=== PATIENT | female | born 1980 | race American Indian/Alaskan Native ===

== ENCOUNTER 2016-10-01 13:20 | Inpatient (IN) | payer MEDICAID, OTHER ==
[2016-10-01 14:01] LABS: Basophils % (Auto) 1.2 % (0.0-1.8); Eosinophils % (Auto) 4.1 % (0.0-4.3); Hematocrit 39.4 % (30.3-42.9); Hemoglobin 12.5 gm/dl (10.1-14.3); Mean Corpuscular HGB Conc 32 % (30-34); Platelet Count 348 K/mm3 (140-440); Red Cell Distribution Width 18.2 % (13.2-15.2); White Blood Count 5.7 K/mm3 (4.5-11.0)
[2016-10-01 14:07] LABS: Mean Corpuscular Hemoglobin 22 pg (28-32); Mean Corpuscular Volume 68 fl (79-97)
[2016-10-01 14:19] LABS: Anion Gap 18 mmol/L; Blood Urea Nitrogen 9 mg/dL (7-17); Carbon Dioxide 25 mmol/L (22-30); Chloride 102.7 mmol/L (98-107); Glucose 92 mg/dL (65-100); Potassium 4.3 mmol/L (3.6-5.0); Sodium 141 mmol/L (137-145)
[2016-10-01 15:51] LABS: Alanine Aminotransferase 10 units/L (7-56); Albumin 3.5 g/dL (3.9-5); Albumin/Globulin Ratio 1.2 %; Alkaline Phosphatase 77 units/L (35-129); INR 1.07 (0.87-1.13); Total Protein 6.4 g/dL (6.3-8.2)
[2016-10-01 15:52] LABS: Partial Thromboplastin Time 28.7 Sec. (24.2-36.6)
[2016-10-01 15:53] LABS: Bilirubin,Direct < 0.2 mg/dL (0-0.2); Bilirubin,Indirect 0.4 mg/dL
[2016-10-01] MEDS ORDERED: LASIX ONE (16:12)
[2016-10-01] MEDS ORDERED: NORMODYNE IV ONE ×3 (16:12→17:05)
--- NOTE | 2016-10-01 16:19 | XRay Report ---
FINAL REPORT PROCEDURE: XR CHEST 1V AP TECHNIQUE: Chest radiograph anteroposterior view. CPT 18800 HISTORY: hypertension COMPARISON: No prior studies are available for comparison. FINDINGS: Heart: Moderately enlarged Mediastinum/Vessels: Moderate to severe congestion. Lungs/Pleural space: Suspect CHF with lower lung zone airspace process and or effusions. Examination limited by underpenetration and motion.. Bony thorax: No acute osseous abnormality. Life support devices: None. IMPRESSION: Suspect moderate to severe CHF with lower lung zone infiltrates and/or effusions. Recommend followup PA lateral chest x-ray nonportable or at least short-term follow-up portable with improved inspiratory effort with improved penetration technique
[2016-10-01] MEDS ORDERED: LASIX IV ONE (16:29)
[2016-10-01] MEDS ORDERED: NITRO-BID 2% TP ONE ×2 (16:53→17:05)
--- NOTE | 2016-10-01 18:08 | History and Physical Report ---
History of Present Illness Date of examination: 10/01/16 Date of admission: 10/01/16 Chief complaint: CC: Sob for few months History of present illness: - History of Present Illness Initial comments: Patient states that she's had somewhat progressive shortness of breath, dyspnea on exertion orthopnea and PND for the past several months. She states that she had a successful one year ago. At that time she was hypertensive. However post she did not follow-up with any physician. She is not taking any medication for hypertension. She states that she just takes turmeric and garlic. She also amazingly states she's had lupus for 20 years but "I did not think it was any big deal". Her medical follow-up as obviously been poor with substitution with herbal treatment. She presents to the emergency department with moderate respiratory distress. Patient does complain of some anterior non-pleuritic chest heaviness. However she is mostly here for evaluation of her dyspnea. She's had no recent fever. She states that she has occasional nonproductive cough. Class III NYHAsymptoms Past Medical Hx - Past Medical History Hx Hypertension: Yes Additional medical history: lupus - Social History Smoking Status: Never Smoker Substance Use Type: None Surg Hx NA Fam Hx Htn Review of Systems ROS: Stated complaint: CHEST PAIN/SOB/RANDAL Other details as noted in HPI Constitutional: denies: chills, fever Eyes: denies: eye pain, eye discharge, vision change ENT: denies: ear pain, throat pain Respiratory: shortness of breath. denies: cough, wheezing Cardiovascular: chest pain. denies: palpitations Endocrine: no symptoms reported Gastrointestinal: denies: abdominal pain, nausea, diarrhea Genitourinary: denies: urgency, dysuria, discharge Musculoskeletal: other (denies leg pain or swelling). denies: back pain, joint swelling, arthralgia Skin: denies: rash, lesions Neurological: denies: headache, weakness, paresthesias Psychiatric: denies: anxiety, depression Hematological/Lymphatic: denies: easy bleeding, easy bruising Medications and Allergies Allergies Allergy/AdvReac Type Severity Reaction Status Date / Time No Known Allergies Allergy Unverified 10/01/16 13:35 Home Medications Medication Instructions Recorded Confirmed Last Taken Type No Known Home Medications [No 10/02/16 10/02/16 Unknown History Reported Home Medications] Exam - Physical Exam Narrative exam: In Mild distress - Constitutional Vitals: Temp Pulse Resp BP Pulse Ox 98 F 107 H 20 174/115 100 10/01/16 13:31 10/01/16 16:26 10/01/16 14:54 10/01/16 16:26 10/01/16 14:54 General appearance: Present: no acute distress, well-nourished - EENT Eyes: Present: PERRL ENT: hearing intact, clear oral mucosa - Neck Neck: Present: supple, normal ROM - Respiratory Respiratory effort: normal Respiratory: bilateral: CTA - Cardiovascular Heart rate: 96 Rhythm: regular Heart Sounds: Present: S1 & S2. Absent: rub, click - Extremities Extremities: pulses intact, pulses symmetrical, No edema Peripheral Pulses: within normal limits - Abdominal General gastrointestinal: Present: soft, non-tender, non-distended, normal bowel sounds Female genitourinary: Present: normal - Rectal Rectal Exam: deferred - Integumentary Integumentary: Present: clear, warm, dry - Musculoskeletal Musculoskeletal: gait normal, strength equal bilaterally - Psychiatric Psychiatric: appropriate mood/affect, intact judgment & insight - Neurologic Neurologic: CNII-XII intact, moves all extremities - Allied Health Allied health notes reviewed: nursing Results - Labs CBC & Chem 7: 10/01/16 13:37 10/02/16 07:21 Labs: Laboratory Last Values WBC 5.7 K/mm3 (4.5-11.0) 10/01/16 13:37 RBC 5.80 M/mm3 (3.65-5.03) H 10/01/16 13:37 Hgb 12.5 gm/dl (10.1-14.3) 10/01/16 13:37 Hct 39.4 % (30.3-42.9) 10/01/16 13:37 MCV 68 fl (79-97) L 10/01/16 13:37 MCH 22 pg (28-32) L 10/01/16 13:37 MCHC 32 % (30-34) 10/01/16 13:37 RDW 18.2 % (13.2-15.2) H 10/01/16 13:37 Plt Count 348 K/mm3 (140-440) 10/01/16 13:37 Lymph % (Auto) 23.1 % (13.4-35.0) 10/01/16 13:37 [place] % (Auto) 7.8 % (0.0-7.3) H 10/01/16 13:37 Eos % (Auto) 4.1 % (0.0-4.3) 10/01/16 13:37 Baso % (Auto) 1.2 % (0.0-1.8) 10/01/16 13:37 Lymph # 1.3 K/mm3 (1.2-5.4) 10/01/16 13:37 [place] # 0.4 K/mm3 (0.0-0.8) 10/01/16 13:37 Eos # 0.2 K/mm3 (0.0-0.4) 10/01/16 13:37 Baso # 0.1 K/mm3 (0.0-0.1) 10/01/16 13:37 Seg Neutrophils % 63.8 % (40.0-70.0) 10/01/16 13:37 Seg Neutrophils # 3.7 K/mm3 (1.8-7.7) 10/01/16 13:37 PT 13.8 Sec. (12.2-14.9) 10/01/16 15:15 INR 1.07 (0.87-1.13) 10/01/16 15:15 APTT 28.7 Sec. (24.2-36.6) 10/01/16 15:15 D-Dimer 867.40 ng/mlDDU (0-234) H 10/01/16 15:15 Sodium 141 mmol/L (137-145) 10/01/16 13:37 Potassium 4.3 mmol/L (3.6-5.0) 10/01/16 13:37 Chloride 102.7 mmol/L (98-107) 10/01/16 13:37 Carbon Dioxide 25 mmol/L (22-30) 10/01/16 13:37 Anion Gap 18 mmol/L 10/01/16 13:37 BUN 9 mg/dL (7-17) 10/01/16 13:37 Creatinine 1.0 mg/dL (0.7-1.2) 10/01/16 13:37 Estimated GFR > 60 ml/min 10/01/16 13:37 BUN/Creatinine Ratio 9.00 % 10/01/16 13:37 Glucose 92 mg/dL (65-100) 10/01/16 13:37 Calcium 9.0 mg/dL (8.4-10.2) 10/01/16 13:37 Magnesium 1.90 mg/dL (1.7-2.3) 10/01/16 15:15 Total Bilirubin 0.60 mg/dL (0.1-1.2) 10/01/16 15:15 Direct Bilirubin < 0.2 mg/dL (0-0.2) 10/01/16 15:15 Indirect Bilirubin 0.4 mg/dL 10/01/16 15:15 AST 12 units/L (5-40) 10/01/16 15:15 ALT 10 units/L (7-56) 10/01/16 15:15 Alkaline Phosphatase 77 units/L (35-129) 10/01/16 15:15 Troponin T < 0.010 ng/mL (0.00-0.029) 10/01/16 16:27 C-Reactive Protein 5.90 mg/dL (0.00-1.30) H 10/01/16 15:15 NT-Pro-B Natriuret Pep 2430 pg/mL (0-450) H 10/01/16 15:15 Total Protein 6.4 g/dL (6.3-8.2) 10/01/16 15:15 Albumin 3.5 g/dL (3.9-5) L 10/01/16 15:15 Albumin/Globulin Ratio 1.2 % 10/01/16 15:15 - Imaging and Cardiology EKG: report reviewed Chest x-ray: report reviewed (CHF on CXR) Assessment and Plan Advance Directives: Yes (Full code) VTE prophylaxis?: Chemical Plan of care discussed with patient/family: Yes - Patient Problems (1) Hypertensive emergency Current Visit: Yes Status: Acute Plan to address problem: Patient has been not taking any hypertensives.She believes in Turmeric and Herbals.Did not follow up with any Physician after her .Started her on Losartan and Coreg.Hydralazine IV 10 mg Prn q3 hrs (2) Acute exacerbation of CHF (congestive heart failure) Current Visit: Yes Status: Acute Qualifiers: Congestive heart failure type: combined Qualified Code(s): I50.43 - Acute on chronic combined systolic (congestive) and diastolic (congestive) heart failure Plan to address problem: New onset CHF.ECHO ordered.Diuretics started.Should improve with controlling HTN.Cardiology consult requested. (3) Lupus Current Visit: Yes Status: Chronic Qualifiers: Lupus erythematosus form: L Systemic lupus erythematosus type: S Systemic lupus erythematosus organ involvement: S Plan to address problem: By HX.Ordered Sed rate PERCY Ds DNA (4) Obesity Current Visit: Yes Status: Chronic Qualifiers: Obesity type: O Obesity classification: O Serious obesity comorbidity presence: S Body mass index: BMI 40.0-44.9 Plan to address problem: Obesity severe.Counselled (5) DVT prophylaxis Current Visit: Yes Status: Acute Plan to address problem: On Lovenox
[2016-10-01] MEDS ORDERED: APRESOLINE ONE (18:17)
[2016-10-01] MEDS ORDERED: APRESOLINE IV ONE (18:18)
[2016-10-01] MEDS ORDERED: ATIVAN ONE (18:56)
[2016-10-01] MEDS ORDERED: ATIVAN PO ONE (18:56)
--- NOTE | 2016-10-01 19:03 | Emergency Department Report ---
ED General Adult HPI - General Chief complaint: Chest Pain Stated complaint: CHEST PAIN/SOB/RANDAL Time Seen by Provider: 10/01/16 14:51 Source: patient Mode of arrival: Ambulatory Limitations: No Limitations - History of Present Illness Initial comments: Patient states that she's had somewhat progressive shortness of breath, dyspnea on exertion orthopnea and PND for the past several months. She states that she had a successful one year ago. At that time she was hypertensive. However after she did not follow-up with any physician. She is not taking any medication for hypertension. She states that she just takes turmeric and garlic. She also amazingly she states she's had lupus for 20 years but "I did not think it was any big deal". Her medical follow-up as obviously been poor with substitution with herbal treatment. She presents to the emergency department with moderate respiratory distress. Patient does complain of some anterior non-pleuritic chest heaviness. However she is mostly here for evaluation of her dyspnea. She's had no recent fever. She states that she has occasional nonproductive cough. -: week(s), month(s) Location: chest Radiation: non-radiation Severity scale (0 -10): 5 Quality: aching Consistency: intermittent Improves with: none Worsens with: none Associated Symptoms: denies other symptoms Treatments Prior to Arrival: other (herbs) - Related Data Allergies Allergy/AdvReac Type Severity Reaction Status Date / Time No Known Allergies Allergy Unverified 10/01/16 13:35 ED Review of Systems ROS: Stated complaint: CHEST PAIN/SOB/RANDAL Other details as noted in HPI Constitutional: denies: chills, fever Eyes: denies: eye pain, eye discharge, vision change ENT: denies: ear pain, throat pain Respiratory: shortness of breath. denies: cough, wheezing Cardiovascular: chest pain. denies: palpitations Endocrine: no symptoms reported Gastrointestinal: denies: abdominal pain, nausea, diarrhea Genitourinary: denies: urgency, dysuria, discharge Musculoskeletal: other (denies leg pain or swelling). denies: back pain, joint swelling, arthralgia Skin: denies: rash, lesions Neurological: denies: headache, weakness, paresthesias Psychiatric: denies: anxiety, depression Hematological/Lymphatic: denies: easy bleeding, easy bruising ED Past Medical Hx - Past Medical History Hx Hypertension: Yes Additional medical history: lupus - Social History Smoking Status: Never Smoker Substance Use Type: None ED Physical Exam - General Limitations: No Limitations General appearance: obese, other (respiratory distress severe hypertension) - Head Head exam: Present: atraumatic, normocephalic - Eye Eye exam: Present: normal appearance. Absent: scleral icterus - ENT ENT exam: Present: mucous membranes moist - Neck Neck exam: Present: normal inspection. Absent: tenderness, meningismus - Respiratory Respiratory exam: Present: respiratory distress, rhonchi - Cardiovascular Cardiovascular Exam: Present: regular rate, normal rhythm. Absent: systolic murmur, diastolic murmur, rubs, gallop - GI/Abdominal GI/Abdominal exam: Present: soft, normal bowel sounds. Absent: distended, tenderness, guarding, rebound, rigid - Extremities Exam Extremities exam: Present: normal inspection - Back Exam Back exam: Present: normal inspection - Neurological Exam Neurological exam: Present: alert, oriented X3, CN II-XII intact. Absent: motor sensory deficit - Psychiatric Psychiatric exam: Present: normal affect, normal mood - Skin Skin exam: Present: warm, dry, intact, normal color. Absent: rash ED Course Vital Signs 10/01/16 10/01/16 10/01/16 13:31 14:54 16:26 Temperature 98 F Pulse Rate 125 H 107 H Respiratory 26 H 20 Rate Blood Pressure 186/135 174/115 O2 Sat by Pulse 97 100 Oximetry - Reevaluation(s) Reevaluation #1: Dr. Reynoso has assumed care of this patient. I have her continue to assist with additional medication for the patient's accelerated hypertension. I spoke to Dr. Reynoso as the patient is having continued anxiety per the nurse. He stated that he was going to come and see the patient. I ordered an arterial blood gas and by mouth Ativan. I spoke with Dr. Reynoso concerning the patient's anticoagulation protocol. He will decide on dose. The patient has diuresed and her blood pressure has improved. 10/01/16 19:03 ED Medical Decision Making - Lab Data Result diagrams: 10/01/16 13:37 10/01/16 13:37 Laboratory Results - last 24 hr 10/01/16 10/01/16 10/01/16 13:37 13:37 15:15 WBC 5.7 RBC 5.80 H Hgb 12.5 Hct 39.4 MCV 68 L MCH 22 L MCHC 32 RDW 18.2 H Plt Count 348 Lymph % (Auto) 23.1 [place] % (Auto) 7.8 H Eos % (Auto) 4.1 Baso % (Auto) 1.2 Lymph # 1.3 [place] # 0.4 Eos # 0.2 Baso # 0.1 Seg Neutrophils % 63.8 Seg Neutrophils # 3.7 PT 13.8 INR 1.07 APTT 28.7 D-Dimer 867.40 H Sodium 141 Potassium 4.3 Chloride 102.7 Carbon Dioxide 25 Anion Gap 18 BUN 9 Creatinine 1.0 Estimated GFR > 60 BUN/Creatinine Ratio 9.00 Glucose 92 Calcium 9.0 Magnesium Total Bilirubin Direct Bilirubin Indirect Bilirubin AST ALT Alkaline Phosphatase Troponin T < 0.010 C-Reactive Protein NT-Pro-B Natriuret Pep Total Protein Albumin Albumin/Globulin Ratio 10/01/16 10/01/16 15:15 16:27 WBC RBC Hgb Hct MCV MCH MCHC RDW Plt Count Lymph % (Auto) [place] % (Auto) Eos % (Auto) Baso % (Auto) Lymph # [place] # Eos # Baso # Seg Neutrophils % Seg Neutrophils # PT INR APTT D-Dimer Sodium Potassium Chloride Carbon Dioxide Anion Gap BUN Creatinine Estimated GFR BUN/Creatinine Ratio Glucose Calcium Magnesium 1.90 Total Bilirubin 0.60 Direct Bilirubin < 0.2 Indirect Bilirubin 0.4 AST 12 ALT 10 Alkaline Phosphatase 77 Troponin T < 0.010 C-Reactive Protein 5.90 H NT-Pro-B Natriuret Pep 2430 H Total Protein 6.4 Albumin 3.5 L Albumin/Globulin Ratio 1.2 - EKG Data -: EKG Interpreted by Me EKG shows normal: sinus rhythm, axis, intervals, QRS complexes, ST-T waves Rate: tachycardia - EKG Data Interpretation: LVH (left atrial enlargement nonspecific changes) - Radiology Data Radiology results: report reviewed interpreted by me: Pulmonary edema on chest x-ray bilateral cardiogenic Critical Care Time: Yes Critical care time in (mins) excluding proc time.: 75 Critical care attestation.: If time is entered above; I have spent that time in minutes in the direct care of this critically ill patient, excluding procedure time. ED Disposition Clinical Impression: Hypertensive emergency Pulmonary edema Qualifiers: Chronicity: acute Qualified Code(s): J81.0 - Acute pulmonary edema Disposition: DC-09 OP ADMIT IP TO THIS HOSP Is pt being admited?: Yes Does the pt Need Aspirin: Yes Condition: Stable Instructions: Hypertension (ED), Pulmonary Edema (ED) Referrals: PRIMARY CARE, [Primary Care Provider] - 3-5 Days Time of Disposition: 19:08
[2016-10-01] MEDS ORDERED: BABY ASPIRIN PO ONE (19:08)
[2016-10-01 19:28] LABS: ISTAT Base Excess -1; ISTAT DEVICE 0; ISTAT HCO3 22.4; ISTAT PCO2 27.5 (35-45); ISTAT PH 7.518 (7.35-7.45); ISTAT PO2 72 (80-105); ISTAT SO2 96; ISTAT TCO2 23
[2016-10-01 20:21] LABS: Bilirubin,Urine NEG (Negative); Blood,Urine NEG (Negative); Ketones,Urine NEG (Negative); Leukocyte Esterase,Urine NEG (Negative); Mucus,Urine FEW /HPF; Nitrite,Urine NEG (Negative); Protein,Urine <15 mg/dL mg/dL (Negative); Urobilinogen,Urine < 2.0 mg/dL (<2.0)
[2016-10-01] MEDS ORDERED: MILK OF MAGNESIA PO PRN (21:10)
[2016-10-01] MEDS ORDERED: PERCOCET 5/325 PO PRN (21:10)
[2016-10-01] MEDS ORDERED: DULCOLAX PR PRN (21:10)
[2016-10-01] MEDS ORDERED: TYLENOL PO PRN (21:10)
[2016-10-01] MEDS ORDERED: AMBIEN PO PRN (21:10)
[2016-10-01] MEDS ORDERED: ZOFRAN IV PRN (21:10)
[2016-10-01] MEDS ORDERED: APRESOLINE IV PRN (21:16)
[2016-10-01] MEDS ORDERED: BABY ASPIRIN ONE (22:01)
[2016-10-01] MEDS: COREG PO SCH (22:31)
[2016-10-01] MEDS: LOVENOX SUB-Q SCH (22:32)
[2016-10-01] MEDS: COZAAR PO SCH (22:32)
[2016-10-01] MEDS: K-DUR PO SCH (22:32)
[2016-10-01] MEDS: DILAUDID IV PRN (23:07)
[2016-10-02] MEDS: LASIX IV SCH ×2 (06:11→19:06)
--- NOTE | 2016-10-02 07:50 | Admit Criteria Form ---
Admission Criteria Documentation: HYPERTENSION Clinical Indications for Admission to Inpatient Care ( [place]/check or initial the applicable condition/criteria) Admission is indicated for 1 or more of the following(1)(2)(3)(4)(5)(6)(7)(8)(9) (10): [X ]I. Hypertensive emergency, with evidence of acute and progressing target organ disease as indicated by 1 or more of the following: [ ]a) Hypertensive encephalopathy (e.g., confusion, altered mental status) (11) [ ]b) Cerebral infarction [ ]c) Intracranial hemorrhage [ ]d) Myocardial ischemia or infarction [X ]e) Heart failure (eg. Pulmonary edema) [ ]f) Aortic dissection [ ]g) Increased creatinine (new) with reduction of more than 50% in estimated glomerular filtration rate from baseline [ ]h) Seizure [ ]i) Papilledema [ ]j) Retinal hemorrhage [ ]k) Microangiopathic hemolytic anemia [ ]l) Other significant finding secondary to hypertension [ ]II. Adrenergic or sympathomimetic crisis (e.g., severe hypertension due to pheochromocytoma crisis, cocaine, phencyclindine, or amphetamine intoxication, or clonidine withdrawal) [ ]III. Severe hypertension (SBP greater than 180 mmHg or DBP greater than 110 mmHg or greater than the 95th percentile for age, gender, and height in pediatric patients) that cannot be controlled (e.g., to SBP less than 160 mmHg and DBP less than 100 mmHg in adults) by treatment with oral medication in emergency department or observation care (12) Extended stay beyond goal length of staymay be needed for(21)(22): [ ]a) Persistent hypertensive encephalopathy [ ]b) Continuation of pulmonary edema [ ]c) Recurring or persistent severe hypertension [ ]d) Target organ damage (eg, angina, stroke, aortic dissection) The original [employer] content created by [employer] has been revised. The portions of the content which have been revised are identified through the use of italic text or in bold, and [employer] has neither reviewed nor approved the modified material. All other unmodified content is copyright [employer]. Please see references footnoted in the original [employer] edition 2016 Admission Criteria Met: Yes
[2016-10-02 07:58] LABS: Alanine Aminotransferase 9 units/L (7-56); Albumin 3.3 g/dL (3.9-5); Alkaline Phosphatase 73 units/L (35-129); Anion Gap 15 mmol/L; BUN/Creatinine Ratio 13.63; Blood Urea Nitrogen 15 mg/dL (7-17); Calcium 8.4 mg/dL (8.4-10.2); Carbon Dioxide 26 mmol/L (22-30); Chloride 102.2 mmol/L (98-107); Glucose 90 mg/dL (65-100); Potassium 3.9 mmol/L (3.6-5.0); Sodium 139 mmol/L (137-145); Total Protein 6.6 g/dL (6.3-8.2)
--- NOTE | 2016-10-02 08:34 | Progress Note ---
Assessment and Plan Assessment and plan: --Hypertensive emergency at the time of admission; On multiple antihypertensives, blood pressure is reasonable level Continue current management, when necessary hydralazine --Acute on chronic hypoxic respiratory failure Multifactorial, secondary to acute on chronic congestive heart failure and fluid overload --Elevated D dimer's in the setting of shortness of breath Evaluate for PE and DVT, CTA chest, lower extremity venous Doppler --Acute on chronic systolic congestive heart failure/EF 30-35% Continue anti-failure medication, input output monitoring, cardiologyevaluation Echocardiogram EF 30-35%. Low sodium diet and fluid restriction --History of lupus; stable --DVT prophylaxis; with Lovenox --Obesity with BMI of 38; counseling done patient strongly advised dietary modification and exercise as tolerated and weight reduction but medically stable --DC planning per case management, possible home health at discharge Plan of care discussed with the patient for nurse and case management Disposition; optimize the medication, home health at discharge, possible discharge in one to 2 days if stable History Interval history: Patient seen and evaluated medical records reviewed No new events reported by the nursing staff Patient has mild shortness of breath denies chest pain Alert awake oriented 3 not in acute distress, vital signs reviewed Hospitalist Physical - Constitutional Vitals: Temp Pulse Resp BP Pulse Ox 98 F 91 H 21 136/83 97 10/01/16 13:31 10/02/16 08:05 10/02/16 08:05 10/02/16 04:00 10/02/16 08:05 General appearance: Present: no acute distress, well-nourished - EENT Eyes: Present: PERRL, EOM intact - Neck Neck: Present: supple, normal ROM - Respiratory Respiratory effort: normal Respiratory: bilateral: diminished, negative: rales, rhonchi, wheezing - Cardiovascular Rhythm: regular Heart Sounds: Present: S1 & S2 - Extremities Extremities: no ischemia Extremity abnormal: edema - Abdominal General gastrointestinal: soft, non-tender, non-distended, normal bowel sounds, other (obese) - Integumentary Integumentary: Present: clear, warm - Psychiatric Psychiatric: appropriate mood/affect, cooperative - Neurologic Neurologic: CNII-XII intact, moves all extremities Results - Labs CBC & Chem 7: 10/01/16 13:37 10/02/16 07:21 Labs: Laboratory Last Values WBC 5.7 K/mm3 (4.5-11.0) 10/01/16 13:37 RBC 5.80 M/mm3 (3.65-5.03) H 10/01/16 13:37 Hgb 12.5 gm/dl (10.1-14.3) 10/01/16 13:37 Hct 39.4 % (30.3-42.9) 10/01/16 13:37 MCV 68 fl (79-97) L 10/01/16 13:37 MCH 22 pg (28-32) L 10/01/16 13:37 MCHC 32 % (30-34) 10/01/16 13:37 RDW 18.2 % (13.2-15.2) H 10/01/16 13:37 Plt Count 348 K/mm3 (140-440) 10/01/16 13:37 Lymph % (Auto) 23.1 % (13.4-35.0) 10/01/16 13:37 [place] % (Auto) 7.8 % (0.0-7.3) H 10/01/16 13:37 Eos % (Auto) 4.1 % (0.0-4.3) 10/01/16 13:37 Baso % (Auto) 1.2 % (0.0-1.8) 10/01/16 13:37 Lymph # 1.3 K/mm3 (1.2-5.4) 10/01/16 13:37 [place] # 0.4 K/mm3 (0.0-0.8) 10/01/16 13:37 Eos # 0.2 K/mm3 (0.0-0.4) 10/01/16 13:37 Baso # 0.1 K/mm3 (0.0-0.1) 10/01/16 13:37 Seg Neutrophils % 63.8 % (40.0-70.0) 10/01/16 13:37 Seg Neutrophils # 3.7 K/mm3 (1.8-7.7) 10/01/16 13:37 PT 13.8 Sec. (12.2-14.9) 10/01/16 15:15 INR 1.07 (0.87-1.13) 10/01/16 15:15 APTT 28.7 Sec. (24.2-36.6) 10/01/16 15:15 D-Dimer 867.40 ng/mlDDU (0-234) H 10/01/16 15:15 POC ABG pH 7.518 (7.35-7.45) H 10/01/16 19:12 POC ABG pCO2 27.5 (35-45) L 10/01/16 19:12 POC ABG pO2 72 (80-105) L 10/01/16 19:12 POC ABG HCO3 22.4 10/01/16 19:12 POC ABG Total CO2 23 10/01/16 19:12 POC ABG O2 Sat 96 10/01/16 19:12 POC ABG Base Excess -1 10/01/16 19:12 FiO2 21 % 10/01/16 19:12 Sodium 139 mmol/L (137-145) 10/02/16 07:21 Potassium 3.9 mmol/L (3.6-5.0) 10/02/16 07:21 Chloride 102.2 mmol/L (98-107) 10/02/16 07:21 Carbon Dioxide 26 mmol/L (22-30) 10/02/16 07:21 Anion Gap 15 mmol/L 10/02/16 07:21 BUN 15 mg/dL (7-17) 10/02/16 07:21 Creatinine 1.1 mg/dL (0.7-1.2) 10/02/16 07:21 Estimated GFR > 60 ml/min 10/02/16 07:21 BUN/Creatinine Ratio 13.63 % 10/02/16 07:21 Glucose 90 mg/dL (65-100) 10/02/16 07:21 Hemoglobin A1c 5.0 % (4-6) 10/02/16 07:21 Calcium 8.4 mg/dL (8.4-10.2) 10/02/16 07:21 Magnesium 1.90 mg/dL (1.7-2.3) 10/01/16 15:15 Total Bilirubin 0.40 mg/dL (0.1-1.2) 10/02/16 07:21 Direct Bilirubin < 0.2 mg/dL (0-0.2) 10/01/16 15:15 Indirect Bilirubin 0.4 mg/dL 10/01/16 15:15 AST 16 units/L (5-40) 10/02/16 07:21 ALT 9 units/L (7-56) 10/02/16 07:21 Alkaline Phosphatase 73 units/L (35-129) 10/02/16 07:21 Troponin T < 0.010 ng/mL (0.00-0.029) 10/01/16 20:48 C-Reactive Protein 5.90 mg/dL (0.00-1.30) H 10/01/16 15:15 NT-Pro-B Natriuret Pep 2430 pg/mL (0-450) H 10/01/16 15:15 Total Protein 6.6 g/dL (6.3-8.2) 10/02/16 07:21 Albumin 3.3 g/dL (3.9-5) L 10/02/16 07:21 Albumin/Globulin Ratio 1.0 % 10/02/16 07:21 Urine Color Straw (Yellow) 10/01/16 17:08 Urine Turbidity Clear (Clear) 10/01/16 17:08 Urine pH 7.0 (5.0-7.0) 10/01/16 17:08 Ur Specific [place] 1.006 (1.003-1.030) 10/01/16 17:08 Urine Protein <15 mg/dl mg/dL (Negative) 10/01/16 17:08 Urine Glucose (UA) Neg mg/dL (Negative) 10/01/16 17:08 Urine Ketones Neg mg/dL (Negative) 10/01/16 17:08 Urine Blood Neg (Negative) 10/01/16 17:08 Urine Nitrite Neg (Negative) 10/01/16 17:08 Urine Bilirubin Neg (Negative) 10/01/16 17:08 Urine Urobilinogen < 2.0 mg/dL (<2.0) 10/01/16 17:08 Ur Leukocyte Esterase Neg (Negative) 10/01/16 17:08 Urine WBC (Auto) 1.0 /HPF (0.0-6.0) 10/01/16 17:08 Urine RBC (Auto) 1.0 /HPF (0.0-6.0) 10/01/16 17:08 U Epithel Cells (Auto) < 1.0 /HPF (0-13.0) 10/01/16 17:08 Urine Mucus Few /HPF 10/01/16 17:08 Urine HCG, Qual Negative (Negative) 10/01/16 17:08
--- NOTE | 2016-10-02 10:49 | Cat Scan Report ---
CTA CHEST: History: Shortness of breath. Technique: Helical CT following IV contrast. Pulmonary embolus protocol. Sagittal and coronal reformatted images. Rotational MIP images. Findings: Contrast bolus is satisfactory. No pulmonary embolus is identified. Mild cardiomegaly is suspected. Trace right pleural effusion is identified mild bibasilar atelectasis is identified. No evidence for pneumonia or pneumothorax. The mediastinal structures are within normal limits. No evidence for mediastinal mass or adenopathy. Impression: No pulmonary embolus is identified. Mild cardiomegaly and small right pleural effusion. Bibasilar atelectasis.
--- NOTE | 2016-10-02 13:48 | Consultation ---
History of Present Illness Consult date: 10/02/16 Consult reason: congestive heart failure History of present illness: This is a 36yr old female who presented with progressive shortness of breath. She reports a history of Hypertension diagnosed a year ago during her . Since giving , she stopped taking her medications and has not followed up with any physician. While in the ED, she had a systolic blood pressure as high as 206 but has improved since initial treatment. Chest x-ray reports CHF. A 12 lead ECG shows a sinus rhythm with LVH and nonspecific Twave abnormalities. Cardiac consultation was requested for CHF evaluation. Medications and Allergies Allergies Allergy/AdvReac Type Severity Reaction Status Date / Time No Known Allergies Allergy Unverified 10/01/16 13:35 Home Medications Medication Instructions Recorded Confirmed Last Taken Type No Known Home Medications [No 10/02/16 10/02/16 Unknown History Reported Home Medications] Active Meds: Active Medications Acetaminophen (Tylenol) 650 mg PO Q4H PRN PRN Reason: Pain MILD(1-3)/Fever >100.5/MENDES Last Admin: 10/01/16 22:33 Dose: 650 mg Bisacodyl (Dulcolax) 10 mg ND QDAY PRN PRN Reason: Constipation unrelieved by MOM Carvedilol (Coreg) 12.5 mg PO BID [facility] Last Admin: 10/01/16 22:31 Dose: 12.5 mg Enoxaparin Sodium (Lovenox) 40 mg SUB-Q QDAY [facility] Last Admin: 10/01/16 22:32 Dose: 40 mg Furosemide (Lasix) 40 mg IV 0600,1800 [facility] Last Admin: 10/02/16 06:11 Dose: 40 mg Hydralazine HCl (Apresoline) 10 mg IV Q3H PRN PRN Reason: Hypertension Last Admin: 10/01/16 23:06 Dose: 10 mg Hydromorphone HCl (Dilaudid) 0.5 mg IV Q3H PRN PRN Reason: Pain , Severe (7-10) Last Admin: 10/01/16 23:07 Dose: 0.5 mg Losartan Potassium (Cozaar) 100 mg PO QDAY [facility] Last Admin: 10/01/16 22:32 Dose: 100 mg Magnesium Hydroxide (Milk Of Magnesia) 30 ml PO Q4H PRN PRN Reason: Constipation Last Admin: 10/01/16 22:33 Dose: 30 ml Ondansetron HCl (Zofran) 4 mg IV Q8H PRN PRN Reason: N/V unrelieved by Reglan Last Admin: 10/01/16 22:36 Dose: 4 mg Oxycodone/Acetaminophen (Percocet 5/325) 1 tab PO Q6H PRN PRN Reason: Pain, Moderate (4-6) Potassium Chloride (K-Dur) 20 meq PO Q12H [facility] Last Admin: 10/01/16 22:32 Dose: 20 meq Zolpidem Tartrate (Ambien) 5 mg PO QHS PRN PRN Reason: Insomnia Physical Examination Vital Signs Temp Pulse Resp BP Pulse Ox 98 F 125 H 26 H 186/135 97 10/01/16 13:31 10/01/16 13:31 10/01/16 13:31 10/01/16 13:31 10/01/16 13:31 General appearance: no acute distress HEENT: Positive: PERRL Neck: Positive: trachea midline Cardiac: Positive: Reg Rate and Rhythm Neuro: Positive: Grossly Intact Results 10/01/16 13:37 10/02/16 07:21 Cardiac Enzymes 10/02/16 Range/Units 07:21 AST 16 (5-40) units/L Comprehensive Metabolic Panel 10/02/16 Range/Units 07:21 Sodium 139 (137-145) mmol/L Potassium 3.9 (3.6-5.0) mmol/L Chloride 102.2 (98-107) mmol/L Carbon Dioxide 26 (22-30) mmol/L BUN 15 (7-17) mg/dL Creatinine 1.1 (0.7-1.2) mg/dL Glucose 90 (65-100) mg/dL Calcium 8.4 (8.4-10.2) mg/dL AST 16 (5-40) units/L ALT 9 (7-56) units/L Alkaline Phosphatase 73 (35-129) units/L Total Protein 6.6 (6.3-8.2) g/dL Albumin 3.3 L (3.9-5) g/dL Assessment and Plan CHF, undetermined echo results pending no evidence of PE on CTA Hypertension Obesity
[2016-10-02] MEDS: COZAAR PO SCH (13:49)
[2016-10-02] MEDS: K-DUR PO SCH ×2 (13:50→22:00)
[2016-10-02] MEDS: COREG PO SCH ×2 (13:50→22:00)
[2016-10-02] MEDS: LOVENOX SUB-Q SCH (13:53)
[2016-10-03] MEDS: LASIX IV SCH ×2 (05:47→19:05)
--- NOTE | 2016-10-03 10:40 | Progress Note ---
Assessment and Plan CHF, systolic EF 30-35% on echocardiogram no evidence of PE on CTA Hypertension Obesity Plan: Medical therapy for systolic heart failure. A predischarge thallium stress test for further cardiac evaluation. Subjective Date of service: 10/03/16 Interval history: Patient reports her breathing is better. Objective Vital Signs Temp Pulse Pulse Resp Resp BP Pulse Ox 10/03/16 10:00 96 10/03/16 09:09 97.5 F L 89 18 124/94 97 10/03/16 04:41 98.2 F 84 18 118/54 96 10/03/16 00:02 97.6 F 74 20 110/64 98 10/02/16 22:00 90 95 H 18 128/60 98 10/02/16 21:12 18 10/02/16 19:51 98 F 90 20 128/60 98 10/02/16 19:02 90 10/02/16 17:55 98.0 F 89 18 117/72 97 10/02/16 13:49 81 139/85 10/02/16 12:59 97 - Physical Examination General: No Apparent Distress HEENT: Positive: PERRL Neck: Positive: trachea midline Cardiac: Positive: Reg Rate and Rhythm Lungs: Positive: Decreased Breath Sounds Neuro: Positive: Grossly Intact - Imaging and Cardiology EKG: report reviewed
[2016-10-03] MEDS: LOVENOX SUB-Q SCH (11:00)
[2016-10-03] MEDS: DILAUDID IV PRN (11:00)
[2016-10-03] MEDS: COZAAR PO SCH (11:01)
--- NOTE | 2016-10-03 16:00 | Vascular Lab Report ---
LOWER EXTREMITY VENOUS DUPLEX: REASON FOR EXAM: Swelling of the lower extremities. COMMENTS ON THE RIGHT: All veins visualized are freely compressible without evidence of internal echogenicity. Flow is spontaneous and phasic throughout. COMMENTS ON THE LEFT: All veins visualized are freely compressible without evidence of internal echogenicity. Flow is spontaneous and phasic throughout. IMPRESSION: No evidence of acute or chronic deep venous thrombosis in either lower extremity.
--- NOTE | 2016-10-03 16:19 | Progress Note ---
Assessment and Plan Assessment and plan: --Hypertensive emergency at the time of admission; On multiple antihypertensives, blood pressure is reasonable level Continue current management, when necessary hydralazine --Acute on chronic hypoxic respiratory failure Multifactorial, secondary to acute on chronic congestive heart failure and fluid overload --Elevated D dimer's in the setting of shortness of breath Evaluate for PE and DVT, CTA chest, lower extremity venous Doppler --Acute on chronic systolic congestive heart failure/EF 30-35% Continue anti-failure medication, input output monitoring, cardiologyevaluation Echocardiogram EF 30-35%. Low sodium diet and fluid restriction --History of lupus; stable --DVT prophylaxis; with Lovenox --Obesity with BMI of 38; counseling done patient strongly advised dietary modification and exercise as tolerated and weight reduction but medically stable --DC planning per case management, possible home health at discharge Plan of care discussed with the patient for nurse and case management Disposition: continue inpatient care, stress test tomorrow, d/w Cardiology, optimize the medication, home health at discharge, possible discharge tomorrow History Interval history: Patient seen and examined. Follow up on current diagnosis/sob, improved. Overnight uneventful. No cp, n/v or severe headaches. Imaging, old records, testing, labs, nursing notes reviewed. Hospitalist Physical - Physical exam Narrative exam: GEN: WDWN, NAD, AWAKE, ALERT, ORIENTATED x 3 HEENT: NCAT, PERRL, EOMI, OP CLEAR NECK: SUPPLE, NO THYROMEGALY, NO JVD, NO LAD CVS: RRR, NORMAL S1S2 LUNGS/CHEST: CTA B, NORMAL CHEST EXPANSION B, GOOD AIR ENTRY B ABD: SOFT, NTND, GBS, NO REBOUND OR GUARDING EXT/SKIN: NO SIGNIFICANT EDEMA OR RASH MSK: FROM X 4 EXTREMITIES NEURO: CN 2-12 GROSSLY INTACT, NO FOCAL DEFICITS PSY: CALM - Constitutional Vitals: Temp Pulse Resp BP Pulse Ox 98.1 F 75 18 119/60 100 10/03/16 13:42 10/03/16 13:42 10/03/16 13:42 10/03/16 13:42 10/03/16 13:42 General appearance: Present: no acute distress, well-nourished Results - Labs CBC & Chem 7: 10/01/16 13:37 10/02/16 07:21 Labs: Laboratory Last Values WBC 5.7 K/mm3 (4.5-11.0) 10/01/16 13:37 RBC 5.80 M/mm3 (3.65-5.03) H 10/01/16 13:37 Hgb 12.5 gm/dl (10.1-14.3) 10/01/16 13:37 Hct 39.4 % (30.3-42.9) 10/01/16 13:37 MCV 68 fl (79-97) L 10/01/16 13:37 MCH 22 pg (28-32) L 10/01/16 13:37 MCHC 32 % (30-34) 10/01/16 13:37 RDW 18.2 % (13.2-15.2) H 10/01/16 13:37 Plt Count 348 K/mm3 (140-440) 10/01/16 13:37 Lymph % (Auto) 23.1 % (13.4-35.0) 10/01/16 13:37 [place] % (Auto) 7.8 % (0.0-7.3) H 10/01/16 13:37 Eos % (Auto) 4.1 % (0.0-4.3) 10/01/16 13:37 Baso % (Auto) 1.2 % (0.0-1.8) 10/01/16 13:37 Lymph # 1.3 K/mm3 (1.2-5.4) 10/01/16 13:37 [place] # 0.4 K/mm3 (0.0-0.8) 10/01/16 13:37 Eos # 0.2 K/mm3 (0.0-0.4) 10/01/16 13:37 Baso # 0.1 K/mm3 (0.0-0.1) 10/01/16 13:37 Seg Neutrophils % 63.8 % (40.0-70.0) 10/01/16 13:37 Seg Neutrophils # 3.7 K/mm3 (1.8-7.7) 10/01/16 13:37 ESR 36 mm/Hr (0-20) 10/02/16 09:27 PT 13.8 Sec. (12.2-14.9) 10/01/16 15:15 INR 1.07 (0.87-1.13) 10/01/16 15:15 APTT 28.7 Sec. (24.2-36.6) 10/01/16 15:15 D-Dimer 867.40 ng/mlDDU (0-234) H 10/01/16 15:15 POC ABG pH 7.518 (7.35-7.45) H 10/01/16 19:12 POC ABG pCO2 27.5 (35-45) L 10/01/16 19:12 POC ABG pO2 72 (80-105) L 10/01/16 19:12 POC ABG HCO3 22.4 10/01/16 19:12 POC ABG Total CO2 23 10/01/16 19:12 POC ABG O2 Sat 96 10/01/16 19:12 POC ABG Base Excess -1 10/01/16 19:12 FiO2 21 % 10/01/16 19:12 Sodium 139 mmol/L (137-145) 10/02/16 07:21 Potassium 3.9 mmol/L (3.6-5.0) 10/02/16 07:21 Chloride 102.2 mmol/L (98-107) 10/02/16 07:21 Carbon Dioxide 26 mmol/L (22-30) 10/02/16 07:21 Anion Gap 15 mmol/L 10/02/16 07:21 BUN 15 mg/dL (7-17) 10/02/16 07:21 Creatinine 1.1 mg/dL (0.7-1.2) 10/02/16 07:21 Estimated GFR > 60 ml/min 10/02/16 07:21 BUN/Creatinine Ratio 13.63 % 10/02/16 07:21 Glucose 90 mg/dL (65-100) 10/02/16 07:21 Hemoglobin A1c 5.0 % (4-6) 10/02/16 07:21 Calcium 8.4 mg/dL (8.4-10.2) 10/02/16 07:21 Magnesium 1.90 mg/dL (1.7-2.3) 10/01/16 15:15 Total Bilirubin 0.40 mg/dL (0.1-1.2) 10/02/16 07:21 Direct Bilirubin < 0.2 mg/dL (0-0.2) 10/01/16 15:15 Indirect Bilirubin 0.4 mg/dL 10/01/16 15:15 AST 16 units/L (5-40) 10/02/16 07:21 ALT 9 units/L (7-56) 10/02/16 07:21 Alkaline Phosphatase 73 units/L (35-129) 10/02/16 07:21 Troponin T < 0.010 ng/mL (0.00-0.029) 10/01/16 20:48 C-Reactive Protein 5.90 mg/dL (0.00-1.30) H 10/01/16 15:15 NT-Pro-B Natriuret Pep 2430 pg/mL (0-450) H 10/01/16 15:15 Total Protein 6.6 g/dL (6.3-8.2) 10/02/16 07:21 Albumin 3.3 g/dL (3.9-5) L 10/02/16 07:21 Albumin/Globulin Ratio 1.0 % 10/02/16 07:21 Urine Color Straw (Yellow) 10/01/16 17:08 Urine Turbidity Clear (Clear) 10/01/16 17:08 Urine pH 7.0 (5.0-7.0) 10/01/16 17:08 Ur Specific [place] 1.006 (1.003-1.030) 10/01/16 17:08 Urine Protein <15 mg/dl mg/dL (Negative) 10/01/16 17:08 Urine Glucose (UA) Neg mg/dL (Negative) 10/01/16 17:08 Urine Ketones Neg mg/dL (Negative) 10/01/16 17:08 Urine Blood Neg (Negative) 10/01/16 17:08 Urine Nitrite Neg (Negative) 10/01/16 17:08 Urine Bilirubin Neg (Negative) 10/01/16 17:08 Urine Urobilinogen < 2.0 mg/dL (<2.0) 10/01/16 17:08 Ur Leukocyte Esterase Neg (Negative) 10/01/16 17:08 Urine WBC (Auto) 1.0 /HPF (0.0-6.0) 10/01/16 17:08 Urine RBC (Auto) 1.0 /HPF (0.0-6.0) 10/01/16 17:08 U Epithel Cells (Auto) < 1.0 /HPF (0-13.0) 10/01/16 17:08 Urine Mucus Few /HPF 10/01/16 17:08 Urine HCG, Qual Negative (Negative) 10/01/16 17:08
[2016-10-03] MEDS: K-DUR PO SCH ×2 (19:03→21:11)
[2016-10-03] MEDS: COREG PO SCH (19:04)
[2016-10-04] MEDS: COREG PO SCH ×2 (00:41→10:22)
[2016-10-04] MEDS: DILAUDID IV PRN ×3 (04:06→14:20)
[2016-10-04] MEDS: LASIX IV SCH ×3 (05:11→18:15)
[2016-10-04] MEDS ORDERED: LEXISCAN IV ONE ×2 (08:44→08:46)
--- NOTE | 2016-10-04 10:18 | Progress Note ---
Assessment and Plan Assessment and plan: Patient is a 36-year-old woman with history of lupus, hypertension and morbid obesity BMI 51.2 presented to [facility] emergency department with shortness of breath and chest pains. Patient has been using herbals to control her blood pressure and lupus. Her blood pressure on triage was 186/135, heart rate 125 respiration, 26, proBNP 2430, chest x-ray read as moderate to severe CHF with lower alone infiltrates and/or effusion recommend follow-up PA chest x-ray. Elevated d-dimer; therefore, she underwent CTA of the chest which was read as no PE, mild cardiomegaly, small right pleural effusion and bibasilar atelectasis. Transthoracic echocardiogram read as global left ventricular systolic function is moderately to severely decreased, estimated ejection fraction is 30-35%, moderate concentric left ventricular Artery, left atrium is mildly dilated, moderate mitral regurgitation. -Hypertensive emergency at the time of admission; On multiple antihypertensives, blood pressure is reasonable level Continue current management, when necessary hydralazine -Acute on chronic hypoxic respiratory failure Multifactorial, secondary to acute on chronic congestive heart failure and fluid overload -Elevated D dimer's in the setting of shortness of breath Evaluate for PE and DVT, CTA chest, lower extremity venous Doppler -Acute on chronic systolic congestive heart failure/EF 30-35% Continue anti-failure medication, input output monitoring, cardiology following Echocardiogram EF 30-35%. Low sodium diet and fluid restriction -History of lupus; stable -DVT prophylaxis; with Lovenox -DC planning per case management, possible home health at discharge Plan of care discussed with the patient for nurse and case management Disposition: continue inpatient care, stress test today, if negative possible d/ c if ok with Cardiology History Interval history: Patient seen and examined. Follow up on current diagnosis/sob, improved. Overnight uneventful. No cp, n/v or severe headaches. Imaging, old records, testing, labs, nursing notes reviewed. Hospitalist Physical - Physical exam Narrative exam: GEN: WDWN, NAD, AWAKE, ALERT, ORIENTATED x 3 HEENT: NCAT, PERRL, EOMI, OP CLEAR NECK: SUPPLE, NO THYROMEGALY, NO JVD, NO LAD CVS: RRR, NORMAL S1S2 LUNGS/CHEST: CTA B, NORMAL CHEST EXPANSION B, GOOD AIR ENTRY B ABD: SOFT, NTND, GBS, NO REBOUND OR GUARDING EXT/SKIN: NO SIGNIFICANT EDEMA OR RASH MSK: FROM X 4 EXTREMITIES NEURO: CN 2-12 GROSSLY INTACT, NO FOCAL DEFICITS PSY: CALM - Constitutional Vitals: Temp Pulse Resp BP Pulse Ox 97.9 F 66 18 160/78 98 10/04/16 04:55 10/04/16 04:55 10/04/16 04:55 10/04/16 04:55 10/04/16 04:55 General appearance: Present: no acute distress, well-nourished Results - Labs CBC & Chem 7: 10/01/16 13:37 10/02/16 07:21 Labs: Laboratory Last Values WBC 5.7 K/mm3 (4.5-11.0) 10/01/16 13:37 RBC 5.80 M/mm3 (3.65-5.03) H 10/01/16 13:37 Hgb 12.5 gm/dl (10.1-14.3) 10/01/16 13:37 Hct 39.4 % (30.3-42.9) 10/01/16 13:37 MCV 68 fl (79-97) L 10/01/16 13:37 MCH 22 pg (28-32) L 10/01/16 13:37 MCHC 32 % (30-34) 10/01/16 13:37 RDW 18.2 % (13.2-15.2) H 10/01/16 13:37 Plt Count 348 K/mm3 (140-440) 10/01/16 13:37 Lymph % (Auto) 23.1 % (13.4-35.0) 10/01/16 13:37 [place] % (Auto) 7.8 % (0.0-7.3) H 10/01/16 13:37 Eos % (Auto) 4.1 % (0.0-4.3) 10/01/16 13:37 Baso % (Auto) 1.2 % (0.0-1.8) 10/01/16 13:37 Lymph # 1.3 K/mm3 (1.2-5.4) 10/01/16 13:37 [place] # 0.4 K/mm3 (0.0-0.8) 10/01/16 13:37 Eos # 0.2 K/mm3 (0.0-0.4) 10/01/16 13:37 Baso # 0.1 K/mm3 (0.0-0.1) 10/01/16 13:37 Seg Neutrophils % 63.8 % (40.0-70.0) 10/01/16 13:37 Seg Neutrophils # 3.7 K/mm3 (1.8-7.7) 10/01/16 13:37 ESR 36 mm/Hr (0-20) 10/02/16 09:27 PT 13.8 Sec. (12.2-14.9) 10/01/16 15:15 INR 1.07 (0.87-1.13) 10/01/16 15:15 APTT 28.7 Sec. (24.2-36.6) 10/01/16 15:15 D-Dimer 867.40 ng/mlDDU (0-234) H 10/01/16 15:15 POC ABG pH 7.518 (7.35-7.45) H 10/01/16 19:12 POC ABG pCO2 27.5 (35-45) L 10/01/16 19:12 POC ABG pO2 72 (80-105) L 10/01/16 19:12 POC ABG HCO3 22.4 10/01/16 19:12 POC ABG Total CO2 23 10/01/16 19:12 POC ABG O2 Sat 96 10/01/16 19:12 POC ABG Base Excess -1 10/01/16 19:12 FiO2 21 % 10/01/16 19:12 Sodium 139 mmol/L (137-145) 10/02/16 07:21 Potassium 3.9 mmol/L (3.6-5.0) 10/02/16 07:21 Chloride 102.2 mmol/L (98-107) 10/02/16 07:21 Carbon Dioxide 26 mmol/L (22-30) 10/02/16 07:21 Anion Gap 15 mmol/L 10/02/16 07:21 BUN 15 mg/dL (7-17) 10/02/16 07:21 Creatinine 1.1 mg/dL (0.7-1.2) 10/02/16 07:21 Estimated GFR > 60 ml/min 10/02/16 07:21 BUN/Creatinine Ratio 13.63 % 10/02/16 07:21 Glucose 90 mg/dL (65-100) 10/02/16 07:21 Hemoglobin A1c 5.0 % (4-6) 10/02/16 07:21 Calcium 8.4 mg/dL (8.4-10.2) 10/02/16 07:21 Magnesium 1.90 mg/dL (1.7-2.3) 10/01/16 15:15 Total Bilirubin 0.40 mg/dL (0.1-1.2) 10/02/16 07:21 Direct Bilirubin < 0.2 mg/dL (0-0.2) 10/01/16 15:15 Indirect Bilirubin 0.4 mg/dL 10/01/16 15:15 AST 16 units/L (5-40) 10/02/16 07:21 ALT 9 units/L (7-56) 10/02/16 07:21 Alkaline Phosphatase 73 units/L (35-129) 10/02/16 07:21 Troponin T < 0.010 ng/mL (0.00-0.029) 10/01/16 20:48 C-Reactive Protein 5.90 mg/dL (0.00-1.30) H 10/01/16 15:15 NT-Pro-B Natriuret Pep 2430 pg/mL (0-450) H 10/01/16 15:15 Total Protein 6.6 g/dL (6.3-8.2) 10/02/16 07:21 Albumin 3.3 g/dL (3.9-5) L 10/02/16 07:21 Albumin/Globulin Ratio 1.0 % 10/02/16 07:21 Urine Color Straw (Yellow) 10/01/16 17:08 Urine Turbidity Clear (Clear) 10/01/16 17:08 Urine pH 7.0 (5.0-7.0) 10/01/16 17:08 Ur Specific [place] 1.006 (1.003-1.030) 10/01/16 17:08 Urine Protein <15 mg/dl mg/dL (Negative) 10/01/16 17:08 Urine Glucose (UA) Neg mg/dL (Negative) 10/01/16 17:08 Urine Ketones Neg mg/dL (Negative) 10/01/16 17:08 Urine Blood Neg (Negative) 10/01/16 17:08 Urine Nitrite Neg (Negative) 10/01/16 17:08 Urine Bilirubin Neg (Negative) 10/01/16 17:08 Urine Urobilinogen < 2.0 mg/dL (<2.0) 10/01/16 17:08 Ur Leukocyte Esterase Neg (Negative) 10/01/16 17:08 Urine WBC (Auto) 1.0 /HPF (0.0-6.0) 10/01/16 17:08 Urine RBC (Auto) 1.0 /HPF (0.0-6.0) 10/01/16 17:08 U Epithel Cells (Auto) < 1.0 /HPF (0-13.0) 10/01/16 17:08 Urine Mucus Few /HPF 10/01/16 17:08 Urine HCG, Qual Negative (Negative) 10/01/16 17:08 Double Strand DNA Ab <1 IU/mL (<=4) 10/02/16 09:27
[2016-10-04] MEDS: COZAAR PO SCH (10:22)
[2016-10-04] MEDS: LOVENOX SUB-Q SCH (10:23)
[2016-10-04] MEDS: K-DUR PO SCH (10:26)
--- NOTE | 2016-10-04 11:42 | Progress Note ---
Assessment and Plan CHF, systolic EF 30-35% on echocardiogram no evidence of PE on CTA Non-ischemic cardiomyopathy MPI - no ischemia, LVEF 30% Hypertension Obesity Plan: Medical therapy for systolic heart failure. Subjective Date of service: 10/04/16 Principal diagnosis: CHF Interval history: Patient underwent a lexiscan stress today without complications Objective Vital Signs Temp Pulse Resp BP Pulse Ox 10/04/16 10:22 160/78 10/04/16 08:59 90 142/77 10/04/16 08:58 91 H 142/77 10/04/16 08:57 94 H 135/75 10/04/16 08:56 97 H 155/105 10/04/16 08:55 99 H 155/105 10/04/16 08:40 78 142/92 10/04/16 07:35 98.1 F 70 16 118/76 100 10/04/16 04:55 97.9 F 66 18 160/78 98 10/04/16 00:00 97.6 F 87 18 148/90 97 10/03/16 21:30 90 10/03/16 21:00 97.3 F L 92 H 20 133/73 99 10/03/16 19:37 97 10/03/16 19:04 75 122/65 10/03/16 17:17 97.9 F 68 18 122/71 100 10/03/16 13:42 98.1 F 75 18 119/60 100 - Physical Examination General: No Apparent Distress HEENT: Positive: PERRL Neck: Positive: trachea midline Cardiac: Positive: Reg Rate and Rhythm Lungs: Positive: Normal Exam Neuro: Positive: Grossly Intact - Imaging and Cardiology EKG: report reviewed
--- NOTE | 2016-10-04 15:29 | Discharge Summary ---
Providers - Providers Date of Admission: 10/01/16 21:10 Date of discharge: 10/04/16 Attending physician: YADY MAHONEY Primary care physician: STEREOTYPER Hospitalization Condition: Stable Hospital course: Patient is a 36-year-old woman with history of lupus, hypertension and morbid obesity BMI 51.2 presented to [facility] emergency department with shortness of breath and chest pains. Patient has been using herbals to control her blood pressure and lupus. Her blood pressure on triage was 186/135, heart rate 125 respiration, 26, proBNP 2430, chest x-ray read as moderate to severe CHF with lower alone infiltrates and/or effusion recommend follow-up PA chest x-ray. Elevated d-dimer; therefore, she underwent CTA of the chest which was read as no PE, mild cardiomegaly, small right pleural effusion and bibasilar atelectasis. Transthoracic echocardiogram read as global left ventricular systolic function is moderately to severely decreased, estimated ejection fraction is 30-35%, moderate concentric left ventricular Artery, left atrium is mildly dilated, moderate mitral regurgitation. -Hypertensive emergency at the time of admission; On multiple antihypertensives, blood pressure is reasonable level Continue current management, when necessary hydralazine -Acute on chronic hypoxic respiratory failure Multifactorial, secondary to acute on chronic congestive heart failure and fluid overload -Elevated D dimer's in the setting of shortness of breath Evaluated for PE and DVT, CTA chest, lower extremity venous Doppler -Acute on chronic systolic congestive heart failure/EF 30-35% Continue anti-failure medication, input output monitoring, cardiology following Echocardiogram EF 30-35%. Low sodium diet and fluid restriction -History of lupus; stable -DVT prophylaxis; with Lovenox -DC planning per case management, possible home health at discharge Plan of care discussed with the patient for nurse and case management Disposition: continue inpatient care, stress test today, if negative possible d/ c if ok with Cardiology Disposition: DC-01 TO HOME OR SELFCARE Time spent for discharge: 32 minutes Core Measure Documentation - Palliative Care Palliative Care/ Comfort Measures: Not Applicable - Core Measures Any of the following diagnoses?: heart failure - VTE Discharge Requirements Deep Vein Thrombosis/Pulmonary Embolism Present on Admission: No Has pt received <5 days of overlap therapy or INR<2.0: No Anticoagulant overlap therapy prescribed at discharge: No Contraindication No Overlap Therapy order at DC: Not Indicated - Heart Failure Discharge Requirements PIYUSH/ARB for LVSD if EF <40%: Yes Beta oly at discharge: Yes Exam - Physical Exam Narrative exam: GEN: WDWN, NAD, AWAKE, ALERT, ORIENTATED x 3, bmi 51.2 HEENT: NCAT, PERRL, EOMI, OP CLEAR NECK: SUPPLE, NO THYROMEGALY, NO JVD, NO LAD CVS: RRR, NORMAL S1S2 LUNGS/CHEST: CTA B, NORMAL CHEST EXPANSION B, GOOD AIR ENTRY B ABD: SOFT, NTND, GBS, NO REBOUND OR GUARDING EXT/SKIN: NO SIGNIFICANT EDEMA OR RASH MSK: FROM X 4 EXTREMITIES NEURO: CN 2-12 GROSSLY INTACT, NO FOCAL DEFICITS PSY: CALM - Constitutional Vitals: Temp Pulse Resp BP Pulse Ox 97.8 F 86 18 142/90 100 10/04/16 13:22 10/04/16 13:22 10/04/16 13:22 10/04/16 13:22 10/04/16 13:22 Plan Activity: other (no strenous activity until cleared by Cardiology) Diet: low salt Follow up with: PRIMARY MD JOHANA [Primary Care Provider] - 3-5 Days ROBERT FERNANDES MD [Staff Physician] - 7 Days Prescriptions: Zolpidem [Ambien] 5 mg PO QHS PRN #10 day PRN Reason: Insomnia Carvedilol [Coreg] 12.5 mg PO BID #60 tablet Furosemide [Lasix TAB] 40 mg PO BID #30 day Losartan [Cozaar] 100 mg PO QDAY #30 day Potassium Chloride [K-Dur] 20 meq PO Q12H #30 day
[2016-10-04 17:56] VITALS: BP 155/96
--- NOTE | 2016-10-05 03:50 | Treadmill Report ---
INDICATION: Cardiomyopathy. ORDERING PHYSICIAN: Max Hickey MD FINDINGS: There is no scintigraphic evidence of myocardial ischemia. The left ventricular cavity is dilated with severe global left ventricular hypokinesis. The left ventricular ejection fraction is measured at 30%. CONCLUSION: 1. Findings are consistent with nonischemic cardiomyopathy. 2. Dilated left ventricular cavity with severe global left ventricular hypokinesis. 3. No scintigraphic evidence of myocardial ischemia. JOB# [id number] GHASSAN/NTS
== END 2016-10-04 18:57 | disposition home or self-care (01) | DRG 291 ==
LOC: ED 13:20 → 4A 21:10
PROVIDERS: ADMIT Internal Medicine; ATTEND Internal Medicine
PROC: 4A033R1 Measurement of Arterial Saturation, Peripheral, Percutaneous Approach (ICD-10-PCS; principal; 2016-10-01)
DX: I11.0 Hypertensive heart disease with heart failure (principal); J96.21 Acute and chronic respiratory failure with hypoxia; I16.1 Hypertensive emergency; Z68.43 Body mass index [BMI] 50.0-59.9, adult; E44.0 Moderate protein-calorie malnutrition; I50.43 Acute on chronic combined systolic (congestive) and diastolic (congestive) heart failure; M32.9 Systemic lupus erythematosus, unspecified; E66.9 Obesity, unspecified; I42.0 Dilated cardiomyopathy; Z82.49 Family history of ischemic heart disease and other diseases of the circulatory system
CPT/HCPCS: 36415; 71010; 71275; 78452; 80048; 80053; 80074; 81001; 81025; 82803; 83036; 83735; 83880; 84484; 85025; 85379; 85610; 85652; 85730; 86038; 86140; 86225; 93005; 93010; 93017; 93306; 93970; 94760; 96374; 96375; 96376; 99292; A9502; J0360; J1170; J1650; J1940; J2405; J2785; Q9967

== ENCOUNTER 2016-10-22 09:17 | Emergency (ER) | payer SELFPAY ==
[2016-10-22] MEDS ORDERED: NACL 0.9% IR ONE (11:27)
[2016-10-22] MEDS ORDERED: XYLOCAINE 1% MPF 5 mL INFILTRATI ONE (11:27)
[2016-10-22] MEDS ORDERED: BOOSTRIX IM ONE (11:27)
--- NOTE | 2016-10-22 12:40 | Emergency Department Report ---
Entered by LOGAN PENA, acting as scribe for DEMIAN TRAVIS PA. ED Laceration HPI - HPI Chief Complaint: Wound/Laceration Stated Complaint: CUT TO RT FINGER Time Seen by Provider: 10/22/16 11:11 Occurred When: Today Location: Upper Extremity (between web space rt hand 4th and 5th digit right hand) Severity: mild Tetanus Status: Not up to Date Laceration Symptoms: Yes Pain (rt hand laceration), No Foreign Body Sensation, No Numbness, No Weakness Other History: 36 y/o female presents to the ED c/o laceration to fifth digit on right hand this morning. Associated symptoms include pain but denies numbness , tingling, foreign body sensation, weakness, fever, chills, nausea and vomiting. Pain is described as dull and 4/10 on a severity scale. Patient states she was washing dishes when she accendentally cut her finger. Denies taking OTC meds. Patient cleaned wound and placed bandaid on it. No alleviating or aggravating factors. NKDA. TDAP not UTD. ED Review of Systems ROS: Stated complaint: CUT TO RT FINGER Other details as noted in HPI Comment: All other systems reviewed and negative Constitutional: denies: chills, fever Eyes: denies: vision change Respiratory: no symptoms reported Cardiovascular: denies: chest pain, palpitations, edema, syncope Gastrointestinal: denies: abdominal pain, nausea, vomiting Musculoskeletal: denies: back pain, arthralgia Skin: other (laceration rt hand at finger) Neurological: denies: headache, weakness, numbness, paresthesias, confusion, abnormal gait, vertigo ED Past Medical Hx - Past Medical History Previous Medical History?: Yes Hx Hypertension: Yes (on meds) Hx Congestive Heart Failure: Yes (On meds) Hx Asthma: No Hx COPD: No Hx HIV: No Additional medical history: lupus - Surgical History Past Surgical History?: No - Family History Family history: hypertension - Social History Smoking Status: Never Smoker Substance Use Type: None Other Social History: - Medications Home Medications: Home Medications Medication Instructions Recorded Confirmed Last Taken Type Acetaminophen [Acetaminophen TAB] 325 mg PO Q4H PRN #30 tablet 10/04/16 Unknown Rx Carvedilol [Coreg] 12.5 mg PO BID #60 tablet 10/04/16 Unknown Rx Furosemide [Lasix TAB] 40 mg PO BID #30 day 10/04/16 Unknown Rx Losartan [Cozaar] 100 mg PO QDAY #30 day 10/04/16 Unknown Rx Potassium Chloride [K-Dur] 20 meq PO Q12H #30 day 10/04/16 Unknown Rx Zolpidem [Ambien] 5 mg PO QHS PRN #10 day 10/04/16 Unknown Rx Cephalexin [Keflex] 500 mg PO Q8HR #15 cap 10/22/16 Unknown Rx Laceration Physical Exam - Exam General: Vital signs noted. No distress. Alert and acting appropriately. Wound Length (cm): 0 (0.5 cm, linear between webspace right hand right fourth and fifth digit) Laceration Location: Upper Extremity (RT hand lceration between rt 4th and 5th digit.) Laceration Exam: Yes Normal Distal CMS, No Foreign Body, No Exposed Tendon, Vessel, or Nerve, No Tendon Injury ED Course Vital Signs 10/22/16 09:29 Temperature 98 F Pulse Rate 82 Respiratory 18 Rate Blood Pressure 189/102 O2 Sat by Pulse 99 Oximetry Vital Signs 10/22/16 10/22/16 09:29 12:21 Temperature 98 F Pulse Rate 82 Respiratory 18 Rate Blood Pressure 189/102 Blood Pressure 168/90 [Left] O2 Sat by Pulse 99 Oximetry - Reevaluation(s) Reevaluation #1: 10/22/16 12:26 Patient given TD vaccine in ER 0.5 ml for up date. Bp better. Seeprocedure note for laceration repair - Laceration /Wound Repair Right Proximal Hand Wound Location: upper extremity (Between web space rt 4th and 5th digit rt hand) Wound Length (cm): 0 (0.5 cm) Wound's Depth, Shape: superficial, linear Wound Explored: clean Irrigated w/ Saline (ccs): 150 (soake prior to irrigating) Betadine Prep?: Yes Anesthesia: 1% Lidocaine Volume Anesthetic (ccs): 1 Wound Debrided: moderate Wound Repaired With: sutures Suture Size/Type: 4:0, proline, nylon Number of Sutures: 5 Layer Closure?: No Sterile Dressing Applied?: Yes Progress: Patient tolerated procedure well. ED Medical Decision Making - Medical Decision Making ED course: Patient with laceration between web spaces of fourth and fifth digits right hand. Laceration repaired under sterile procedure. Please see procedure note for details. Patient given tetanus booster 0.5 mL for tetanus update. I instructed her to return to emergency room in 7-10 days to have sutures removed. Patient with good neurovascular status Pre/ Post laceration repair. She also with a history of hypertension, congestive heart failure and lupus and she is on medication . She did not take her blood pressure medication today as yet. . The pressure was elevated in triage at what 89/102 but can manually and better. I discussed the patient that she will need to keep a log of her blood pressure and follow up with her primary care physician which she does have one for evaluation and management of hypertension. Patient discharged home in stable condition. She is asymptomatic with elevated blood pressure. Assessment/plan 1. Simple laceration Rt hand between fourth and fifth digit 2. Arthralgia right hand 3. Elevated blood pressure with history of hypertension Pt discharged home in stable condition and she was encouraged to keep a log of her blood pressure and take to her primary care visits for evaluation and management of high blood pressure. She was given prescription for Keflex and instructed that she can take [id number] Tylenol every 6 hours as needed for pain and to follow instructions guidelines and how to take Tylenol. Critical care attestation.: If time is entered above; I have spent that time in minutes in the direct care of this critically ill patient, excluding procedure time. ED Disposition Clinical Impression: Arthralgia of right hand, Elevated blood pressure reading with diagnosis of hypertension Laceration of right hand without complication, including fingers Qualifiers: Encounter type: initial encounter Qualified Code(s): S61.411A - Laceration without foreign body of right hand, initial encounter Disposition: TO HOME OR SELFCARE Is pt being admited?: No Does the pt Need Aspirin: No Condition: Stable Instructions: Hypertension (ED), Laceration (ED), Suture Care (ED) Additional Instructions: Take antibiotic as prescribed Follow-up with your primary care physician in 3 -5 days Keep affected area clean and dry. Followed discharge instruction on suture care Please return to emergency room if you develop increasing redness, streaking, fever, difficulty moving in and the left forearm and increase in pain otherwise return in 7-10 days to have stitches removed Prescriptions: Cephalexin [Keflex] 500 mg PO Q8HR #15 cap Referrals: PRIMARY CARE, [Primary Care Provider] - 3-5 Days return to, emergency room [Other] - 7-10 days (For suture removal) Forms: Accompanied Note This documentation as recorded by the JEAN morales ELIZABETH,accurately reflects the service I personally performed and the decisions made by me,DEMIAN TRAVIS PA.
[2016-10-22 12:49] VITALS: BP 156/82
== END 2016-10-22 12:47 | disposition home or self-care (01) ==
LOC: ED 09:17
DX: S61.411A Laceration without foreign body of right hand, initial encounter (principal); I10 Essential (primary) hypertension; I50.9 Heart failure, unspecified; W45.8XXA Other foreign body or object entering through skin, initial encounter; Y93.89 Activity, other specified; Y92.89 Other specified places as the place of occurrence of the external cause; Y99.9 Unspecified external cause status
CPT/HCPCS: 90471; 90715

== ENCOUNTER 2016-11-02 12:14 | Emergency (ER) | payer SELFPAY | END 2016-11-02 12:15 | disposition left against medical advice (07) | LOC: ED 12:14 | DX: Z48.02 Encounter for removal of sutures (principal); Z53.21 Procedure and treatment not carried out due to patient leaving prior to being seen by health care provider ==

== ENCOUNTER 2016-11-03 10:42 | Emergency (ER) | payer SELFPAY ==
[2016-11-03 12:05] VITALS: BP 144/92
--- NOTE | 2016-11-03 13:55 | Emergency Department Report ---
Suture/Staple Removal - [facility] Chief Complaint: Laceration/Recheck/Suture Stated Complaint: STUTURE REMOVAL Time Seen by Provider: 11/03/16 13:47 Wound Location: right pinky finger sutures x 6 ED Review of Systems ROS: Stated complaint: STUTURE REMOVAL Other details as noted in HPI Constitutional: denies: chills, fever Eyes: denies: eye pain, eye discharge, vision change ENT: denies: ear pain, throat pain Respiratory: denies: cough, shortness of breath, wheezing Cardiovascular: denies: chest pain, palpitations Endocrine: no symptoms reported Gastrointestinal: denies: abdominal pain, nausea, diarrhea Genitourinary: denies: urgency, dysuria, discharge Musculoskeletal: denies: back pain, joint swelling, arthralgia Skin: denies: rash, lesions Neurological: denies: headache, weakness, paresthesias Psychiatric: denies: anxiety, depression Hematological/Lymphatic: denies: easy bleeding, easy bruising ED Past Medical Hx - Past Medical History Hx Hypertension: Yes (on meds) Hx Congestive Heart Failure: Yes (On meds) Hx Asthma: No Hx COPD: No Hx HIV: No Additional medical history: lupus - Social History Smoking Status: Never Smoker Substance Use Type: None - Medications Home Medications: Home Medications Medication Instructions Recorded Confirmed Last Taken Type Acetaminophen [Acetaminophen TAB] 325 mg PO Q4H PRN #30 tablet 10/04/16 Unknown Rx Carvedilol [Coreg] 12.5 mg PO BID #60 tablet 10/04/16 Unknown Rx Furosemide [Lasix TAB] 40 mg PO BID #30 day 10/04/16 Unknown Rx Losartan [Cozaar] 100 mg PO QDAY #30 day 10/04/16 Unknown Rx Potassium Chloride [K-Dur] 20 meq PO Q12H #30 day 10/04/16 Unknown Rx Zolpidem [Ambien] 5 mg PO QHS PRN #10 day 10/04/16 Unknown Rx Cephalexin [Keflex] 500 mg PO Q8HR #15 cap 10/22/16 Unknown Rx Suture Removal Exam - Exam General: Vital signs noted. No distress. Alert and acting appropriately. Wound: No Pathologic Erythema, No Tenderness, No Drainage, No Pus, No Wound Dehiscence Other Systems: All other systems reviewed and are unremarkable. ED Course Vital Signs 11/03/16 11:58 Temperature 98.1 F Pulse Rate 65 Respiratory 16 Rate Blood Pressure 144/92 O2 Sat by Pulse 100 Oximetry ED Recheck MDM - Differential Diagnosis Suture/Staple Removal - Medical Decision Making sutures x 6 to right pinky finger removed intact with scissors and twisers, wound healed no discharge edges well approximated there is no erythema no pain rom intact, no symptoms of infection pt given post suture care instructions pt tolerated procedure with minimal distress, pt for dc to self at this time. Critical care attestation.: If time is entered above; I have spent that time in minutes in the direct care of this critically ill patient, excluding procedure time. ED Disposition Clinical Impression: Visit for suture removal Disposition: DC-01 TO HOME OR SELFCARE Is pt being admited?: No Does the pt Need Aspirin: No Condition: Good Instructions: Suture Removal (ED) Referrals: PRIMARY CARE, [Primary Care Provider] - 3-5 Days Forms: Work/School Release Form(ED) Time of Disposition: 13:56
== END 2016-11-03 14:20 | disposition home or self-care (01) ==
LOC: ED 10:42
DX: Z48.02 Encounter for removal of sutures (principal)

== ENCOUNTER 2017-08-10 22:46 | Emergency (ER) | payer SELFPAY ==
[2017-08-10] MEDS ORDERED: ASPIRIN ONE (23:55)
[2017-08-11] MEDS ORDERED: ASPIRIN PO ONE (00:09)
[2017-08-11 01:13] LABS: Basophils # (Auto) 0.1 K/mm3 (0.0-0.1); Basophils % (Auto) 1.1 % (0.0-1.8); Eosinophils # (Auto) 0.2 K/mm3 (0.0-0.4); Eosinophils % (Auto) 4.3 % (0.0-4.3); Hematocrit 42.5 % (30.3-42.9); Lymphocytes # (Auto) 1.9 K/mm3 (1.2-5.4); Lymphocytes % (Auto) 35.3 % (13.4-35.0); Mean Corpuscular HGB Conc 33 % (30-34); Mean Corpuscular Volume 75 fl (79-97); Monocytes # (Auto) 0.5 K/mm3 (0.0-0.8); Monocytes % (Auto) 9.7 % (0.0-7.3); Platelet Count 334 K/mm3 (140-440); Red Blood Count 5.68 M/mm3 (3.65-5.03); Red Cell Distribution Width 15.5 % (13.2-15.2)
[2017-08-11 01:28] LABS: Mean Corpuscular Hemoglobin 25 pg (28-32)
[2017-08-11 01:35] LABS: BUN/Creatinine Ratio 16; Blood Urea Nitrogen 13 mg/dL (7-17); Calcium 9.1 mg/dL (8.4-10.2); Hemolysis Index 7
--- NOTE | 2017-08-11 02:16 | XRay Report ---
FINAL REPORT PROCEDURE: XR CHEST ROUTINE 2V TECHNIQUE: PA and lateral chest radiographs were obtained. CPT 16190 HISTORY: chestpain COMPARISON: 10/01/2016 FINDINGS: Heart: Normal. Mediastinum/Vessels: Normal. Lungs/Pleural space: Normal. Bony thorax: No acute osseous abnormality. Other: IMPRESSION: Normal examination.
[2017-08-11] MEDS ORDERED: TYLENOL #3 PO ONE (11:24)
[2017-08-11] MEDS ORDERED: ZOFRAN ODT PO ONE (11:24)
[2017-08-11] MEDS ORDERED: LASIX PO ONE (11:25)
[2017-08-11] MEDS ORDERED: NITROSTAT SL ONE (11:25)
--- NOTE | 2017-08-11 13:05 | Emergency Department Report ---
HPI - General Chief Complaint: Chest Pain Time Seen by Provider: 08/11/17 10:32 - HPI HPI: The patient is a 37-year-old female with a history of hypertension, who presents for evaluation of chest pain. The patient reports constant, although waxing and waning chest pain since 6pm yesterday, mild to moderate in severity, tight and sharp in quality, radiating to the back. The patient denies fever, neck pain, parasthesias, dyspnea, cough, hemoptysis, palpitations, dizziness, syncope, unilateral leg swelling, calf muscle pain. Patient also denies cocaine or other stimulant use, recent immobilization, or history of cancer. ED Past Medical Hx - Past Medical History Hx Hypertension: Yes (on meds) Hx Congestive Heart Failure: Yes (On meds) Hx Asthma: No Hx COPD: No Hx HIV: No Additional medical history: lupus - Social History Smoking Status: Never Smoker Substance Use Type: None - Medications Home Medications: Home Medications Medication Instructions Recorded Confirmed Last Taken Type Acetaminophen [Acetaminophen TAB] 325 mg PO Q4H PRN #30 tablet 10/04/16 Unknown Rx Carvedilol [Coreg] 12.5 mg PO BID #60 tablet 10/04/16 Unknown Rx Furosemide [Lasix TAB] 40 mg PO BID #30 day 10/04/16 Unknown Rx Losartan [Cozaar] 100 mg PO QDAY #30 day 10/04/16 Unknown Rx Potassium Chloride [K-Dur] 20 meq PO Q12H #30 day 10/04/16 Unknown Rx Zolpidem [Ambien] 5 mg PO QHS PRN #10 day 10/04/16 Unknown Rx Cephalexin [Keflex] 500 mg PO Q8HR #15 cap 10/22/16 Unknown Rx Omeprazole Magnesium [PriLOSEC Otc] 20 mg PO QDAY #14 tablet. 08/11/17 Unknown Rx traMADol [Ultram 50 MG tab] 50 mg PO Q6HR PRN #15 tablet 08/11/17 Unknown Rx ED Review of Systems ROS: Stated complaint: CHEST PAIN Other details as noted in HPI Constitutional: denies: fever ENT: denies: throat or neck pain Respiratory: denies: cough, shortness of breath Cardiovascular: reports chest pain Endocrine: denies unexplained weight loss or gain Gastrointestinal: denies: abdominal pain, nausea Genitourinary: denies: dysuria Musculoskeletal: denies: leg swelling Skin: denies: rash Neurological: denies: headache Hematological/Lymphatic: denies: easy bleeding or easy bruising Psych: denies sadness or hopelessness Physical Exam - Physical Exam Vital Signs: Vital Signs 08/10/17 08/11/17 23:58 08:29 Temperature 98.3 F Pulse Rate 84 Respiratory 20 18 Rate Blood Pressure 149/79 O2 Sat by Pulse 100 Oximetry Physical Exam: General: well-nourished, well-developed, no acute distress, patient is morbidly obese Head: Normocephalic, atraumatic Eyes: normal sclera ENT: Mucous membranes are pink and moist Neck: trachea midline, neck supple, No neck stiffness, no cervical adenopathy Respiratory: Breath sounds equal bilaterally, no wheezing, rales, or rhonchi Cardio: S1 and S2 present, no murmurs, rubs, gallops, capillary refill is brisk Abdomen: Normoactive bowel sounds, soft abdomen, no rigidity, no guarding or rebound tenderness Musc: No pitting edema Skin: No rash Neuro: no facial drooping, normal speech Psych: Normal affect ED Course Vital Signs 08/10/17 08/11/17 23:58 08:29 Temperature 98.3 F Pulse Rate 84 Respiratory 20 18 Rate Blood Pressure 149/79 O2 Sat by Pulse 100 Oximetry ED Medical Decision Making - Lab Data Result diagrams: 08/11/17 00:30 08/11/17 00:30 - Medical Decision Making The patient was seen and examined by myself. The patient is placed on a surveillance system monitor and continuous pulse ox. On initial evaluation, the patient was found to be in no distress. EKG was negative for findings suggestive of acute cardiac infarct. Labs and imaging are obtained. Chest x-ray is negative for pneumothorax, focal consolidation, pulmonary vascular congestion, pleural effusion, or other obvious acute cardiopulmonary disease process. Lab results were non-concerning including levels of troponin, WBC, hemoglobin, hematocrit, electrolytes, renal function. The patient was reevaluated and reported that their symptoms were markedly improved. As the patient has a MARCIN risk score less than 2, and a negative CT angiogram of the chest, the patient is at low risk of ACS or pulmonary emboli etiology of their symptoms. The patient is stable for discharge with outpatient follow-up. The patient is given follow-up and return instructions. The patient expressed understanding and agreed with the plan. The patient is discharged in stable condition. Critical care attestation.: If time is entered above; I have spent that time in minutes in the direct care of this critically ill patient, excluding procedure time. ED Disposition Clinical Impression: Acute chest pain Disposition: DC-01 TO HOME OR SELFCARE Is pt being admited?: No Does the pt Need Aspirin: No Condition: Stable Instructions: Chest Pain (ED), Costochondritis (ED), Gastroesophageal Reflux Disease (ED) Referrals: [facility] [Outside] - 3-5 Days Time of Disposition: 13:07
--- NOTE | 2017-08-11 15:25 | Cat Scan Report ---
FINAL REPORT EXAM: CT ANGIO CHEST HISTORY: chest pain, reported hx of DVT COMPARISON: Chest CT performed on 10/02/2016 TECHNIQUE: Multiple contiguous axial images were obtained from the thoracic inlet to the upper abdomen after administration of IV contrast. Reformatted sagittal and coronal images were available for review. FINDINGS: Medical devices: None. Thyroid: Normal. Lymph nodes: No significant mediastinal, hilar, or axillary lymphadenopathy. Vasculature: Normal caliber of the thoracic aorta with a conventional branching pattern of the aortic arch. Normal caliber of the pulmonary artery. No filling defect to suggest pulmonary embolism. Heart: Normal heart size. Other mediastinal structures: Small hiatal hernia. Lung parenchyma: No focal consolidation. No suspicious nodule or mass. Airways: Patent. No bronchiectasis. Pleura: No pleural effusion or pneumothorax. Chest wall and spine: No suspicious osseous lesions. No acute fracture or dislocation. Upper Abdomen: Normal. IMPRESSION: 1. No evidence of pulmonary embolism. 2. No acute intrathoracic pathology.
[2017-08-11 17:19] VITALS: BP 166/52
== END 2017-08-11 17:17 | disposition home or self-care (01) ==
LOC: ED 22:46
DX: R07.9 Chest pain, unspecified (principal)
CPT/HCPCS: 36415; 71046; 71275; 80048; 83880; 84484; 84703; 85025; 93005; 93010; 99285; Q9967; Q0162

== ENCOUNTER 2018-10-04 10:38 | Emergency (ER) | payer MEDICAID ==
--- NOTE | 2018-10-04 11:18 | XRay Report ---
Left ankle, 3 views INDICATION: Pain and swelling for one day. COMPARISON: None. IMPRESSION: Normal bone mineralization. No acute osseous injury or joint pathology is identified. Th ere is moderate diffuse soft tissue swelling. Small plantar spur is noted. Signer Name: Tunde Bashir Jr, MD Signed: 10/04/2018 11:13 AM Workstation Name: [id number]
--- NOTE | 2018-10-04 11:35 | Emergency Department Report ---
ED Lower Extremity HPI - General Chief Complaint: Extremity Injury, Lower Stated Complaint: LFT ANKLE BROKEN/PAIN Time Seen by Provider: 10/04/18 11:24 Source: patient Mode of arrival: Wheelchair Limitations: No Limitations - History of Present Illness Initial Comments: 38-year-old morbidly obese -[place] female who is much department complaining of left ankle pain. States that she was in the middle of a [place] break earlier this morning when she was moving around her left leg gave out. Upon the leg giving out. She reports inversion of her left ankle and a crackling sensation followed by pain swelling and inability to ambulate. States she's been trying to ambulate since this morning but has been unsuccessful just reason for her visit to the emergency department today. No numbness or tingling to her lower extremities. No pain to her knees or thigh or hip region. Injury: Ankle: Left Type of Injury: inversion Place: home Severity: moderate Context: fall Associated Symptoms: numbness, unable to bear weight - Related Data Previous Rx's Medication Instructions Recorded Last Taken Type Acetaminophen [Acetaminophen TAB] 325 mg PO Q4H PRN #30 tablet 10/04/16 Unknown Rx Carvedilol [Coreg] 12.5 mg PO BID #60 tablet 10/04/16 Unknown Rx Furosemide [Lasix TAB] 40 mg PO BID #30 day 10/04/16 Unknown Rx Losartan [Cozaar] 100 mg PO QDAY #30 day 10/04/16 Unknown Rx Potassium Chloride [K-Dur] 20 meq PO Q12H #30 day 10/04/16 Unknown Rx Zolpidem [Ambien] 5 mg PO QHS PRN #10 day 10/04/16 Unknown Rx cephALEXin [Keflex] 500 mg PO Q8HR #15 cap 10/22/16 Unknown Rx Omeprazole Magnesium [PriLOSEC Otc] 20 mg PO QDAY #14 tablet. 08/11/17 Unknown Rx traMADol [Ultram 50 MG tab] 50 mg PO Q6HR PRN #15 tablet 08/11/17 Unknown Rx Allergies Allergy/AdvReac Type Severity Reaction Status Date / Time No Known Allergies Allergy Verified 08/11/17 00:35 ED Review of Systems ROS: Stated complaint: LFT ANKLE BROKEN/PAIN Other details as noted in HPI Comment: All other systems reviewed and negative ED Past Medical Hx - Past Medical History Previous Medical History?: Yes Hx Hypertension: Yes (on meds) Hx Congestive Heart Failure: Yes (On meds) Hx Asthma: No Hx COPD: No Hx HIV: No Additional medical history: lupus - Surgical History Past Surgical History?: No - Social History Smoking Status: Never Smoker Substance Use Type: None - Medications Home Medications: Home Medications Medication Instructions Recorded Confirmed Last Taken Type Acetaminophen [Acetaminophen TAB] 325 mg PO Q4H PRN #30 tablet 10/04/16 Unknown Rx Carvedilol [Coreg] 12.5 mg PO BID #60 tablet 10/04/16 Unknown Rx Furosemide [Lasix TAB] 40 mg PO BID #30 day 10/04/16 Unknown Rx Losartan [Cozaar] 100 mg PO QDAY #30 day 10/04/16 Unknown Rx Potassium Chloride [K-Dur] 20 meq PO Q12H #30 day 10/04/16 Unknown Rx Zolpidem [Ambien] 5 mg PO QHS PRN #10 day 10/04/16 Unknown Rx cephALEXin [Keflex] 500 mg PO Q8HR #15 cap 10/22/16 Unknown Rx Omeprazole Magnesium [PriLOSEC Otc] 20 mg PO QDAY #14 tablet. 08/11/17 Unknown Rx traMADol [Ultram 50 MG tab] 50 mg PO Q6HR PRN #15 tablet 08/11/17 Unknown Rx ED Physical Exam - General Limitations: No Limitations General appearance: alert, in no apparent distress - Head Head exam: Present: atraumatic, normocephalic - Eye Eye exam: Present: normal appearance - ENT ENT exam: Present: mucous membranes moist - Neck Neck exam: Present: normal inspection - Respiratory Respiratory exam: Present: normal lung sounds bilaterally. Absent: respiratory distress - Extremities Exam Extremities exam: Present: tenderness (swelling and tenderness to the left lateral malleolar region and pain with range of motion of the foot. Pulses are 2+. Capillary refills are brisk. There is no tenderness to the proximal left fibular region. No tenderness to the popliteal fossa or the knee.) - Back Exam Back exam: Present: normal inspection - Neurological Exam Neurological exam: Present: CN II-XII intact, normal gait ED Course Vital Signs 10/04/18 10:45 Temperature 97.9 F Pulse Rate 93 H Respiratory 20 Rate Blood Pressure 165/94 O2 Sat by Pulse 100 Oximetry ED Lower Extremity MDM - Medical Decision Making Obese 38-year-old [place] female status post fall with left ankle pain. X-rays are negative for fracture or dislocation. Plan is to place an ankle stirrup brace and crutches and continue to ice and elevate and utilize anti- inflammatory. Critical care attestation.: If time is entered above; I have spent that time in minutes in the direct care of this critically ill patient, excluding procedure time. ED Disposition Clinical Impression: Ankle sprain Disposition: TO HOME OR SELFCARE Is pt being admited?: No Does the pt Need Aspirin: No Condition: Stable Instructions: Ankle Sprain (ED), Ankle Stirrup Splint (ED), Crutch Instructions (ED), Ice Pack Application (ED), RICE Therapy (ED) Referrals: PRIMARY CARE, [Primary Care Provider] - 3-5 Days
[2018-10-04 11:46] VITALS: BP 160/90
== END 2018-10-04 11:44 | disposition home or self-care (01) ==
LOC: ED 10:38
DX: S93.402A Sprain of unspecified ligament of left ankle, initial encounter (principal); I11.0 Hypertensive heart disease with heart failure; I50.9 Heart failure, unspecified; X50.9XXA Other and unspecified overexertion or strenuous movements or postures, initial encounter; Y93.89 Activity, other specified; Y92.009 Unspecified place in unspecified non-institutional (private) residence as the place of occurrence of the external cause; Y99.8 Other external cause status